=== PATIENT | male | born 1945 | race Caucasian/White ===

== ENCOUNTER 2022-05-12 15:02 | Inpatient (IN) | payer MEDICARE, MEDICAID ==
[~2022-05-12] VITALS: Ht 175.3 cm; Wt 128.1 kg
[2022-05-12] MEDS ORDERED: LOPERAMIDE HCL 2 MG CAPSULE PO PRN (16:00)
[2022-05-12] MEDS ORDERED: GuaiFENesin/D-METHORPHAN [SUGAR-FREE] 200-20MG/10 ML SYRUP UDCUP PO PRN (16:00)
[2022-05-12] MEDS ORDERED: TUBERCULIN, PURIFIED PROTEIN DERIVATIVE 5 TU/0.1 ML SYRINGE ID ONE (16:00)
[2022-05-12] MEDS ORDERED: LORazepam 0.5 MG TABLET PO PRN (16:00)
[2022-05-12] MEDS ORDERED: QUEtiapine FUMARATE 25 MG TABLET PO PRN (16:00)
[2022-05-12] MEDS ORDERED: HydrOXYzine PAMOATE 50 MG CAPSULE PO PRN (16:00)
[2022-05-12] MEDS ORDERED: MAG HYDROX/AL HYDROX/SIMETH ES 30 ML SUSPENSION UDCUP PO PRN (16:00)
[2022-05-12] MEDS ORDERED: MAGNESIUM HYDROXIDE SUSPENSION 30 ML UDCUP PO PRN (16:00)
[2022-05-12] MEDS ORDERED: ACETAMINOPHEN 325 MG TABLET PO PRN (16:00)
[2022-05-12] MEDS ORDERED: ZOLPIDEM TARTRATE 10 MG TABLET PO PRN (16:00)
[2022-05-12 16:09] LABS: BASOPHILS % (AUTO) 1.2 % (0.0-2.0); EOSINOPHILS % (AUTO) 1.4 % (1.0-6.0); HEMATOCRIT 44.4 % (41-53); HEMOGLOBIN 14.6 g/dL (13.5-17.5); LYMPHOCYTES # (AUTO) 2.2 K/uL (1.0-4.8); LYMPHOCYTES % (AUTO) 18.3 % (22.0-44.0); MEAN CORPUSCULAR HEMOGLOBIN 30.2 pg (26.0-34.0); MEAN CORPUSCULAR HGB CONC 32.9 G/dL (31.0-37.0); MEAN CORPUSCULAR VOLUME 92 fL (80-100); MONOCYTES # (AUTO) 0.7 K/uL (0.1-1.0); MONOCYTES % (AUTO) 5.8 % (2.0-9.0); NEUTROPHILS # (AUTO) 8.7 K/uL (1.8-7.7); NEUTROPHILS % (AUTO) 73.3 % (40.0-70.0); PLATELET COUNT (AUTO) 282 K/uL (150-450); RED BLOOD CELL COUNT(AUTO) 4.84 MIL/uL (4.50-5.90); RED CELL DISTRIBUTION WIDTH 14.2 % (11.5-14.5)
[2022-05-12 16:15] LABS: ANION GAP 9 mmol/L (8-16); CALCIUM, TOTAL 9.1 mg/dL (8.8-10.5); CARBON DIOXIDE 28 mmol/L (22-29); CHLORIDE 102 mmol/L (98-107); CREATININE 1.42 mg/dL (0.60-1.30); GLOMERULAR FILTR. RATE CALC 49 mL/min (>60); GLUCOSE,RANDOM 93 mg/dL (70-110); POTASSIUM 4.4 mmol/L (3.5-5.1); SODIUM SERUM 139 mmol/L (136-145); UREA NITROGEN, BLOOD 18 mg/dL (7-18)
[2022-05-12 16:37] LABS: ALANINE AMINOTRANSFERASE 28 U/L (12-78); ALKALINE PHOSPHATASE 94 U/L (46-116); ASPARTATE AMINOTRANSFERASE 21 U/L (15-37); BILIRUBIN,TOTAL 1.2 mg/dL (0.1-1.0); THYROID STIMULATING HORMONE 0.01 uIU/mL (0.36-3.74); TOTAL PROTEIN, SERUM 7.7 g/dL (6.4-8.2)
[2022-05-12 16:48] LABS: CREATINE KINASE, TOTAL ONLY 40 U/L (39-308); LIPASE 327 U/L (73-393)
[2022-05-12 16:49] LABS: AMMONIA < 10 umol/L (11-32)
[2022-05-12 20:29] LABS: COVID AG,FIA SOURCE NASOPHARYNGEAL
[2022-05-12 20:37] LABS: APPEARANCE,URINE CLEAR (CLEAR); BILIRUBIN,URINE NEGATIVE (NEGATIVE); GLUCOSE, URINE (UA) NEGATIVE (NEGATIVE); KETONES,URINE NEGATIVE (NEGATIVE); LEUKOCYTE ESTERASE ,URINE NEGATIVE (NEGATIVE); NITRATE,URINE NEGATIVE (NEGATIVE); OCCULT BLOOD,URINE TRACE (NEGATIVE); PROTEIN,URINE NEGATIVE (NEGATIVE); SPECIFIC GRAVITIY, URINE 1.009 (1.003-1.030); UROBILINOGEN,URINE <=1.0 mg/dL (<=1.0)
[2022-05-12 20:42] LABS: AMPHET/METH SCREEN,URINE NEGATIVE (NEGATIVE); BARBITURATE SCREEN, URINE NEGATIVE (NEGATIVE); BENZODIAZEPINES SCREEN,URINE NEGATIVE (NEGATIVE); CANNABINOID SCREEN,URINE NEGATIVE (NEGATIVE); COCAINE SCREEN,URINE NEGATIVE (NEGATIVE); METHADONE SCREEN, URINE NEGATIVE (NEGATIVE); OPIATE SCREEN,URINE NEGATIVE (NEGATIVE); PHENCYCLIDINE SCREEN,URINE NEGATIVE (NEGATIVE)
[2022-05-12 20:45] LABS: BACTERIA,URINE None Seen /HPF (None Seen); SQUAMOUS EPITHELIAL CELL,UR Rare /LPF (None Seen); WBC,URINE 0-2 /HPF (0-5)
[2022-05-12] MEDS: MELATONIN 5 MG TABLET PO SCH (22:30)
[2022-05-12] MEDS: THIAMINE 100 MG TABLET PO SCH (22:30)
[2022-05-12 22:48] VITALS: BP 115/66
[2022-05-12 22:56] LABS: GLUCOMETER DEV NAME(LOC) BV2X.2; GLUCOSE,POINT OF CARE 70 MG/DL (70-110)
[2022-05-13] MEDS ORDERED: INFLUENZA VIRUS VACCINE QVS 2022-23 (6MO+)/PF 60 MCG/0.5 ML SYRINGE IM. ONE (01:15)
[2022-05-13 08:41] LABS: HEMOGLOBIN A1C 5.5 % (3.8-5.6)
[2022-05-13 08:48] LABS: CHOL/HDL RATIO 2.2 (4.2-7.3); FREE T4 (FREE THYROXINE) 1.03 ng/dL (0.76-1.46); THYROID STIMULATING HORMONE 1.64 uIU/mL (0.36-3.74)
[2022-05-13 08:56] VITALS: BP 105/67
[2022-05-13] MEDS: MULTIVITAMINS WITH MINERALS, THERAPEUTIC TABLET PO SCH (08:58)
[2022-05-13] MEDS: OMEGA-3/DHA/EPA/FISH OIL 500 MG CAPSULE PO SCH (08:58)
[2022-05-13] MEDS: FOLIC ACID 1 MG TABLET PO SCH (08:58)
[2022-05-13] MEDS: THIAMINE 100 MG TABLET PO SCH ×2 (08:58→17:02)
[2022-05-13] MEDS: MELATONIN 5 MG TABLET PO SCH (20:16)
[2022-05-13 20:50] VITALS: BP 111/61
[2022-05-14] MEDS: FOLIC ACID 1 MG TABLET PO SCH (09:10)
[2022-05-14] MEDS: MULTIVITAMINS WITH MINERALS, THERAPEUTIC TABLET PO SCH (09:10)
[2022-05-14] MEDS: THIAMINE 100 MG TABLET PO SCH ×2 (09:10→16:32)
[2022-05-14] MEDS: OMEGA-3/DHA/EPA/FISH OIL 500 MG CAPSULE PO SCH (09:10)
[2022-05-14 09:18] VITALS: BP 115/68
[2022-05-14] MEDS ORDERED: MELA5TAB40 PO (18:07)
[2022-05-14] MEDS ORDERED: OMEG-126 PO (18:07)
[2022-05-14 20:14] VITALS: BP 106/63
[2022-05-14] MEDS: MELATONIN 5 MG TABLET PO SCH (20:35)
[2022-05-15] MEDS ORDERED: MELA5TAB40 PO (06:24)
[2022-05-15] MEDS ORDERED: OMEG-126 PO (06:25)
[2022-05-15 08:30] VITALS: BP 102/62
[2022-05-15] MEDS: OMEGA-3/DHA/EPA/FISH OIL 500 MG CAPSULE PO SCH (09:24)
[2022-05-15] MEDS: FOLIC ACID 1 MG TABLET PO SCH (09:25)
[2022-05-15] MEDS: MULTIVITAMINS WITH MINERALS, THERAPEUTIC TABLET PO SCH (09:25)
[2022-05-15] MEDS: THIAMINE 100 MG TABLET PO SCH (09:25)
== END 2022-05-15 14:42 | disposition home or self-care (01) | DRG 884 ==
LOC: EMS 15:05 → B2S 20:00 → B2X 22:24
PROVIDERS: ADMIT Psychiatry & Neurology Psychiatry; ATTEND Psychiatry & Neurology Psychiatry
DX: F09 Unspecified mental disorder due to known physiological condition (principal); F32.9 Major depressive disorder, single episode, unspecified; Z20.822 Contact with and (suspected) exposure to COVID-19; M19.90 Unspecified osteoarthritis, unspecified site; Z55.9 Problems related to education and literacy, unspecified; Z59.9 Problem related to housing and economic circumstances, unspecified; Z63.9 Problem related to primary support group, unspecified; Z65.3 Problems related to other legal circumstances
CPT/HCPCS: 70450; 71045; 80053; 80061; 80307; 81001; 82140; 82550; 82962; 83036; 83690; 84439; 84443; 84484; 85025; 86592; 90686; 93005; 99285; G0480; Q9967; 36415-L1; 36415-TC; G0008